=== PATIENT | female | born 1965 | race Caucasian/White ===

== ENCOUNTER 2021-11-24 18:42 | Inpatient (IN) | payer OTHER ==
[2021-11-24 20:02] VITALS: BMI 26.9
[2021-11-24] MEDS ORDERED: MAGNESIUM CITRATE 300 ML BOTTLE PO PRN (21:37)
[2021-11-24] MEDS ORDERED: MAGNESIUM HYDROX 2400MG/30ML ORAL SUSPENSION 30 ML CUP PO PRN (21:37)
[2021-11-24] MEDS ORDERED: LOPERAMIDE HCL 2 MG CAPSULE PO PRN (21:37)
[2021-11-24] MEDS ORDERED: NICOTINE POLACRILEX 2 MG GUM BC PRN (21:37)
[2021-11-24] MEDS ORDERED: MAG HYDROX/AL HYDROX/SIMETH 30 ML UNIT-DOSE CUP PO PRN (21:37)
[2021-11-25] MEDS: THIAMINE HCL 100 MG TABLET (FP) PO SCH ×2 (14:01→21:40)
[2021-11-25] MEDS: PRENATAL VITAMINS W/ FOLIC ACID TABLET (FP) PO SCH (14:01)
[2021-11-25 14:15] LABS: HEMOGLOBIN 11.8 GM/dL (10.7-15.3); MEAN CELL VOLUME 84.6 fl (80-96); MEAN PLT VOLUME 9.9 fl (7.5-11.1); PLATELET COUNT 203 10^3/uL (134-434); RBC 4.37 M/mm3 (3.60-5.2); RDW 15.4 % (11.6-15.6)
[2021-11-25 14:30] LABS: ALBUMIN 3.2 g/dl (3.4-5.0); BLOOD UREA NITROGEN 20.6 mg/dL (7-18)
[2021-11-25 14:33] LABS: CREATININE 0.6 mg/dL (0.55-1.3)
[2021-11-25 14:34] LABS: BILIRUBIN,TOTAL 0.2 mg/dL (0.2-1); TOT PROT 6.3 g/dl (6.4-8.2)
[2021-11-25 15:08] LABS: CALCIUM 9.4 mg/dL (8.5-10.1)
[2021-11-25] MEDS: MELATONIN 5 MG TABLETS PO PRN (21:40)
[2021-11-25] MEDS: hydrOXYzine PAMOATE 25 MG CAPSULE (FP) PO PRN (21:41)
[2021-11-25] MEDS: P-EPHED 60MG/TRIPROLIDI 2.5MG TABLET PO PRN (22:08)
[2021-11-26] MEDS: hydrOXYzine PAMOATE 25 MG CAPSULE (FP) PO PRN ×2 (04:01→22:00)
[2021-11-26] MEDS: P-EPHED 60MG/TRIPROLIDI 2.5MG TABLET PO PRN ×3 (04:01→18:06)
[2021-11-26] MEDS: ACETAMINOPHEN 325 MG TABLET (FP) PO PRN ×2 (10:48→21:53)
[2021-11-26] MEDS: PRENATAL VITAMINS W/ FOLIC ACID TABLET (FP) PO SCH (10:48)
[2021-11-26] MEDS: NICOTINE 10 MG CARTRIDGE (INHALER) IH SCH (13:40)
[2021-11-26] MEDS ORDERED: BENZOCAINE/MENTH/CETYLPYRD CL 1 EACH LOZENGE MM PRN (17:27)
[2021-11-26 17:46] LABS: PH,URINE 6.5 (5.0-8.0); URINE APPEARANCE CLEAR; URINE BILIRUBIN NEGATIVE (NEGATIVE); URINE COLOR YELLOW; URINE GLUCOSE (UA) NEGATIVE (NEGATIVE); URINE KETONE NEGATIVE (NEGATIVE); URINE LEUK ESTERASE NEGATIVE (NEGATIVE); URINE NITRITE NEGATIVE (NEGATIVE); URINE PROTEIN NEGATIVE (NEGATIVE); URINE UROBILINOGEN 0.2 mg/dL (0.2-1.0)
[2021-11-26] MEDS: THIAMINE HCL 100 MG TABLET (FP) PO SCH (21:53)
[2021-11-26] MEDS: QUEtiapine FUMARATE 200 MG TABLET PO SCH (21:53)
[2021-11-26] MEDS: guaiFENesin 200 MG/10 ML 10 ML UNIT-DOSE CUPS PO PRN (22:00)
[2021-11-27] MEDS: P-EPHED 60MG/TRIPROLIDI 2.5MG TABLET PO PRN ×3 (04:48→21:44)
[2021-11-27] MEDS: guaiFENesin 200 MG/10 ML 10 ML UNIT-DOSE CUPS PO PRN ×3 (04:48→18:52)
[2021-11-27] MEDS: PRENATAL VITAMINS W/ FOLIC ACID TABLET (FP) PO SCH (10:38)
[2021-11-27] MEDS: NICOTINE 10 MG CARTRIDGE (INHALER) IH SCH (10:39)
[2021-11-27] MEDS: ACETAMINOPHEN 325 MG TABLET (FP) PO PRN (14:29)
[2021-11-27] MEDS: IBUPROFEN 400 MG TABLET (FP) PO PRN (18:51)
[2021-11-27] MEDS: hydrOXYzine PAMOATE 25 MG CAPSULE (FP) PO PRN ×2 (18:51→21:40)
[2021-11-27] MEDS: THIAMINE HCL 100 MG TABLET (FP) PO SCH (21:40)
[2021-11-27] MEDS: QUEtiapine FUMARATE 200 MG TABLET PO SCH (21:40)
[2021-11-28] MEDS: IBUPROFEN 400 MG TABLET (FP) PO PRN (04:54)
[2021-11-28] MEDS: guaiFENesin 200 MG/10 ML 10 ML UNIT-DOSE CUPS PO PRN ×2 (04:54→17:35)
[2021-11-28] MEDS: hydrOXYzine PAMOATE 25 MG CAPSULE (FP) PO PRN ×3 (06:34→21:38)
[2021-11-28] MEDS: P-EPHED 60MG/TRIPROLIDI 2.5MG TABLET PO PRN (06:34)
[2021-11-28] MEDS: PRENATAL VITAMINS W/ FOLIC ACID TABLET (FP) PO SCH (10:09)
[2021-11-28] MEDS: NICOTINE 10 MG CARTRIDGE (INHALER) IH SCH (10:10)
[2021-11-28] MEDS: OSELTAMIVIR PHOSPHATE 75 MG CAPSULE PO SCH ×2 (11:35→21:37)
[2021-11-28] MEDS: ACETAMINOPHEN 325 MG TABLET (FP) PO PRN (17:35)
[2021-11-28] MEDS: THIAMINE HCL 100 MG TABLET (FP) PO SCH (21:37)
[2021-11-28] MEDS: QUEtiapine FUMARATE 200 MG TABLET PO SCH (21:37)
[2021-11-29] MEDS: hydrOXYzine PAMOATE 25 MG CAPSULE (FP) PO PRN ×3 (06:54→21:35)
[2021-11-29] MEDS: IBUPROFEN 400 MG TABLET (FP) PO PRN (06:54)
[2021-11-29] MEDS: NICOTINE 10 MG CARTRIDGE (INHALER) IH SCH (10:20)
[2021-11-29] MEDS: OSELTAMIVIR PHOSPHATE 75 MG CAPSULE PO SCH ×2 (10:21→21:35)
[2021-11-29] MEDS: ACETAMINOPHEN 325 MG TABLET (FP) PO PRN (10:21)
[2021-11-29] MEDS: PRENATAL VITAMINS W/ FOLIC ACID TABLET (FP) PO SCH (10:21)
[2021-11-29] MEDS: THIAMINE HCL 100 MG TABLET (FP) PO SCH (21:34)
[2021-11-29] MEDS: QUEtiapine FUMARATE 200 MG TABLET PO SCH (21:35)
[2021-11-30] MEDS: OSELTAMIVIR PHOSPHATE 75 MG CAPSULE PO SCH ×2 (10:08→22:37)
[2021-11-30] MEDS: PRENATAL VITAMINS W/ FOLIC ACID TABLET (FP) PO SCH (10:08)
[2021-11-30] MEDS: NICOTINE 10 MG CARTRIDGE (INHALER) IH SCH (10:08)
[2021-11-30] MEDS: hydrOXYzine PAMOATE 25 MG CAPSULE (FP) PO PRN ×2 (10:09→22:38)
[2021-11-30] MEDS: THIAMINE HCL 100 MG TABLET (FP) PO SCH (22:37)
[2021-11-30] MEDS: ACETAMINOPHEN 325 MG TABLET (FP) PO PRN (22:37)
[2021-11-30] MEDS: QUEtiapine FUMARATE 200 MG TABLET PO SCH (22:37)
[2021-12-01] MEDS: OSELTAMIVIR PHOSPHATE 75 MG CAPSULE PO SCH ×2 (09:34→21:34)
[2021-12-01] MEDS: PRENATAL VITAMINS W/ FOLIC ACID TABLET (FP) PO SCH (09:34)
[2021-12-01] MEDS: IBUPROFEN 400 MG TABLET (FP) PO PRN (09:35)
[2021-12-01] MEDS: NICOTINE 10 MG CARTRIDGE (INHALER) IH SCH (09:36)
[2021-12-01] MEDS: hydrOXYzine PAMOATE 25 MG CAPSULE (FP) PO PRN ×2 (16:45→21:35)
[2021-12-01] MEDS: THIAMINE HCL 100 MG TABLET (FP) PO SCH (21:33)
[2021-12-01] MEDS: QUEtiapine FUMARATE 200 MG TABLET PO SCH (21:33)
[2021-12-02] MEDS: NICOTINE 10 MG CARTRIDGE (INHALER) IH SCH (10:23)
[2021-12-02] MEDS: PRENATAL VITAMINS W/ FOLIC ACID TABLET (FP) PO SCH (10:23)
[2021-12-02] MEDS: OSELTAMIVIR PHOSPHATE 75 MG CAPSULE PO SCH ×2 (10:23→21:30)
[2021-12-02] MEDS: IBUPROFEN 400 MG TABLET (FP) PO PRN (14:03)
[2021-12-02] MEDS: hydrOXYzine PAMOATE 25 MG CAPSULE (FP) PO PRN (14:03)
[2021-12-02] MEDS: QUEtiapine FUMARATE 200 MG TABLET PO SCH (21:29)
[2021-12-02] MEDS: MELATONIN 5 MG TABLETS PO PRN (21:29)
[2021-12-02] MEDS: THIAMINE HCL 100 MG TABLET (FP) PO SCH (21:29)
[2021-12-03] MEDS: NICOTINE 10 MG CARTRIDGE (INHALER) IH SCH (10:23)
[2021-12-03] MEDS: PRENATAL VITAMINS W/ FOLIC ACID TABLET (FP) PO SCH (10:24)
[2021-12-03] MEDS: IBUPROFEN 400 MG TABLET (FP) PO PRN (10:25)
[2021-12-03] MEDS: hydrOXYzine PAMOATE 25 MG CAPSULE (FP) PO PRN ×2 (10:25→21:51)
[2021-12-03] MEDS: OSELTAMIVIR PHOSPHATE 75 MG CAPSULE PO SCH (13:48)
[2021-12-03] MEDS: THIAMINE HCL 100 MG TABLET (FP) PO SCH (21:51)
[2021-12-03] MEDS: QUEtiapine FUMARATE 200 MG TABLET PO SCH (21:51)
[2021-12-03] MEDS: MELATONIN 5 MG TABLETS PO PRN (21:52)
[2021-12-04] MEDS: PRENATAL VITAMINS W/ FOLIC ACID TABLET (FP) PO SCH (10:29)
[2021-12-04] MEDS: hydrOXYzine PAMOATE 25 MG CAPSULE (FP) PO PRN ×3 (10:29→21:40)
[2021-12-04] MEDS: NICOTINE 10 MG CARTRIDGE (INHALER) IH SCH (10:29)
[2021-12-04] MEDS: THIAMINE HCL 100 MG TABLET (FP) PO SCH (21:40)
[2021-12-04] MEDS: QUEtiapine FUMARATE 200 MG TABLET PO SCH (21:40)
[2021-12-04] MEDS: MELATONIN 5 MG TABLETS PO PRN (21:40)
[2021-12-05] MEDS: PRENATAL VITAMINS W/ FOLIC ACID TABLET (FP) PO SCH (10:35)
[2021-12-05] MEDS: NICOTINE 10 MG CARTRIDGE (INHALER) IH SCH (10:35)
[2021-12-05] MEDS: hydrOXYzine PAMOATE 25 MG CAPSULE (FP) PO PRN ×3 (10:35→21:59)
[2021-12-05] MEDS: MELATONIN 5 MG TABLETS PO PRN (21:59)
[2021-12-05] MEDS: THIAMINE HCL 100 MG TABLET (FP) PO SCH (21:59)
[2021-12-05] MEDS: QUEtiapine FUMARATE 200 MG TABLET PO SCH (21:59)
[2021-12-06] MEDS: PRENATAL VITAMINS W/ FOLIC ACID TABLET (FP) PO SCH (11:55)
[2021-12-06] MEDS: NICOTINE 10 MG CARTRIDGE (INHALER) IH SCH (11:55)
[2021-12-06] MEDS: MELATONIN 5 MG TABLETS PO PRN (21:54)
[2021-12-06] MEDS: QUEtiapine FUMARATE 200 MG TABLET PO SCH (21:55)
[2021-12-06] MEDS: hydrOXYzine PAMOATE 25 MG CAPSULE (FP) PO PRN (21:55)
[2021-12-06] MEDS: THIAMINE HCL 100 MG TABLET (FP) PO SCH (21:55)
[2021-12-07] MEDS: PRENATAL VITAMINS W/ FOLIC ACID TABLET (FP) PO SCH (11:32)
[2021-12-07] MEDS: NICOTINE 10 MG CARTRIDGE (INHALER) IH SCH (11:32)
[2021-12-07] MEDS: THIAMINE HCL 100 MG TABLET (FP) PO SCH (21:37)
[2021-12-07] MEDS: MELATONIN 5 MG TABLETS PO PRN (21:37)
[2021-12-07] MEDS: hydrOXYzine PAMOATE 25 MG CAPSULE (FP) PO PRN (21:37)
[2021-12-07] MEDS: QUEtiapine FUMARATE 200 MG TABLET PO SCH (21:37)
[2021-12-08] MEDS: PRENATAL VITAMINS W/ FOLIC ACID TABLET (FP) PO SCH (10:45)
[2021-12-08] MEDS: NICOTINE 10 MG CARTRIDGE (INHALER) IH SCH (10:45)
[2021-12-08] MEDS: QUEtiapine FUMARATE 200 MG TABLET PO SCH (21:42)
[2021-12-08] MEDS: THIAMINE HCL 100 MG TABLET (FP) PO SCH (21:42)
[2021-12-08] MEDS: hydrOXYzine PAMOATE 25 MG CAPSULE (FP) PO PRN (21:42)
[2021-12-08] MEDS: MELATONIN 5 MG TABLETS PO PRN (21:43)
[2021-12-09] MEDS: hydrOXYzine PAMOATE 25 MG CAPSULE (FP) PO PRN ×4 (10:35→21:51)
[2021-12-09] MEDS: PRENATAL VITAMINS W/ FOLIC ACID TABLET (FP) PO SCH (10:35)
[2021-12-09] MEDS: NICOTINE 10 MG CARTRIDGE (INHALER) IH SCH (10:35)
[2021-12-09] MEDS: THIAMINE HCL 100 MG TABLET (FP) PO SCH (21:51)
[2021-12-09] MEDS: QUEtiapine FUMARATE 200 MG TABLET PO SCH (21:51)
[2021-12-09] MEDS: MELATONIN 5 MG TABLETS PO PRN (21:51)
[2021-12-10] MEDS: PRENATAL VITAMINS W/ FOLIC ACID TABLET (FP) PO SCH (10:49)
[2021-12-10] MEDS: hydrOXYzine PAMOATE 25 MG CAPSULE (FP) PO PRN ×3 (10:49→21:45)
[2021-12-10] MEDS: NICOTINE 10 MG CARTRIDGE (INHALER) IH SCH ×3 (10:49→15:49)
[2021-12-10] MEDS: IBUPROFEN 400 MG TABLET (FP) PO PRN ×2 (10:50→15:47)
[2021-12-10] MEDS: QUEtiapine FUMARATE 200 MG TABLET PO SCH (21:45)
[2021-12-10] MEDS: THIAMINE HCL 100 MG TABLET (FP) PO SCH (21:45)
[2021-12-10] MEDS: MELATONIN 5 MG TABLETS PO PRN (21:45)
[2021-12-10] MEDS: NICOTINE 10 MG CARTRIDGE (INHALER) IH PRN (21:46)
[2021-12-11] MEDS: PRENATAL VITAMINS W/ FOLIC ACID TABLET (FP) PO SCH (10:45)
[2021-12-11] MEDS: hydrOXYzine PAMOATE 25 MG CAPSULE (FP) PO PRN ×2 (10:46→21:44)
[2021-12-11] MEDS: NICOTINE 10 MG CARTRIDGE (INHALER) IH PRN ×3 (10:46→21:45)
[2021-12-11] MEDS: MELATONIN 5 MG TABLETS PO PRN (21:44)
[2021-12-11] MEDS: THIAMINE HCL 100 MG TABLET (FP) PO SCH (21:44)
[2021-12-11] MEDS: QUEtiapine FUMARATE 200 MG TABLET PO SCH (21:44)
[2021-12-12] MEDS: PRENATAL VITAMINS W/ FOLIC ACID TABLET (FP) PO SCH (10:30)
[2021-12-12] MEDS: NICOTINE 10 MG CARTRIDGE (INHALER) IH PRN ×3 (11:05→21:44)
[2021-12-12] MEDS: MELATONIN 5 MG TABLETS PO PRN (21:43)
[2021-12-12] MEDS: QUEtiapine FUMARATE 200 MG TABLET PO SCH (21:43)
[2021-12-12] MEDS: THIAMINE HCL 100 MG TABLET (FP) PO SCH (21:43)
[2021-12-12] MEDS: hydrOXYzine PAMOATE 25 MG CAPSULE (FP) PO PRN (21:43)
[2021-12-13] MEDS: PRENATAL VITAMINS W/ FOLIC ACID TABLET (FP) PO SCH (11:26)
[2021-12-13] MEDS: NICOTINE 10 MG CARTRIDGE (INHALER) IH PRN ×2 (15:39→22:10)
[2021-12-13] MEDS: hydrOXYzine PAMOATE 25 MG CAPSULE (FP) PO PRN ×3 (16:03→22:02)
[2021-12-13] MEDS: THIAMINE HCL 100 MG TABLET (FP) PO SCH (22:02)
[2021-12-13] MEDS: QUEtiapine FUMARATE 200 MG TABLET PO SCH (22:02)
[2021-12-13] MEDS: MELATONIN 5 MG TABLETS PO PRN (22:02)
[2021-12-14] MEDS: NICOTINE 10 MG CARTRIDGE (INHALER) IH PRN ×2 (10:29→19:04)
[2021-12-14] MEDS: hydrOXYzine PAMOATE 25 MG CAPSULE (FP) PO PRN ×2 (10:30→22:01)
[2021-12-14] MEDS: PRENATAL VITAMINS W/ FOLIC ACID TABLET (FP) PO SCH (11:13)
[2021-12-14] MEDS: MELATONIN 5 MG TABLETS PO PRN (22:00)
[2021-12-14] MEDS: THIAMINE HCL 100 MG TABLET (FP) PO SCH (22:00)
[2021-12-14] MEDS: QUEtiapine FUMARATE 200 MG TABLET PO SCH (22:00)
[2021-12-15] MEDS: NICOTINE 14 MG/24 HOURS TOPICAL PATCH TD SCH (11:09)
[2021-12-15] MEDS: PRENATAL VITAMINS W/ FOLIC ACID TABLET (FP) PO SCH (11:10)
[2021-12-15] MEDS: NICOTINE 10 MG CARTRIDGE (INHALER) IH PRN ×3 (11:49→20:49)
[2021-12-15] MEDS: QUEtiapine FUMARATE 200 MG TABLET PO SCH (21:51)
[2021-12-15] MEDS: THIAMINE HCL 100 MG TABLET (FP) PO SCH (21:51)
[2021-12-16] MEDS: NICOTINE 10 MG CARTRIDGE (INHALER) IH PRN ×4 (06:59→21:29)
[2021-12-16] MEDS: PRENATAL VITAMINS W/ FOLIC ACID TABLET (FP) PO SCH (10:05)
[2021-12-16] MEDS: NICOTINE 14 MG/24 HOURS TOPICAL PATCH TD SCH (10:05)
[2021-12-16] MEDS: IBUPROFEN 400 MG TABLET (FP) PO PRN (12:25)
[2021-12-16] MEDS: THIAMINE HCL 100 MG TABLET (FP) PO SCH (21:28)
[2021-12-16] MEDS: QUEtiapine FUMARATE 200 MG TABLET PO SCH (21:28)
[2021-12-17] MEDS: NICOTINE 10 MG CARTRIDGE (INHALER) IH PRN ×3 (10:35→18:53)
[2021-12-17] MEDS: hydrOXYzine PAMOATE 25 MG CAPSULE (FP) PO PRN ×2 (10:35→21:50)
[2021-12-17] MEDS: PRENATAL VITAMINS W/ FOLIC ACID TABLET (FP) PO SCH (10:35)
[2021-12-17] MEDS: IBUPROFEN 400 MG TABLET (FP) PO PRN (10:36)
[2021-12-17] MEDS: METHOCARBAMOL 500 MG TABLET PO PRN (10:37)
[2021-12-17] MEDS: NICOTINE 14 MG/24 HOURS TOPICAL PATCH TD SCH (10:51)
[2021-12-17] MEDS: TOLNAFTATE 1% CREAM 15 GM TUBE TP SCH ×2 (12:09→23:18)
[2021-12-17] MEDS: P-EPHED 60MG/TRIPROLIDI 2.5MG TABLET PO PRN (19:51)
[2021-12-17] MEDS: QUEtiapine FUMARATE 200 MG TABLET PO SCH (21:49)
[2021-12-17] MEDS: MELATONIN 5 MG TABLETS PO PRN (21:49)
[2021-12-17] MEDS: THIAMINE HCL 100 MG TABLET (FP) PO SCH (21:49)
[2021-12-18 07:24] VITALS: TEMP 97.1
[2021-12-18] MEDS: hydrOXYzine PAMOATE 25 MG CAPSULE (FP) PO PRN (10:11)
[2021-12-18] MEDS: NICOTINE 14 MG/24 HOURS TOPICAL PATCH TD SCH (10:11)
[2021-12-18] MEDS: TOLNAFTATE 1% CREAM 15 GM TUBE TP SCH ×2 (10:11→21:58)
[2021-12-18] MEDS: PRENATAL VITAMINS W/ FOLIC ACID TABLET (FP) PO SCH (10:11)
[2021-12-18] MEDS: NICOTINE 10 MG CARTRIDGE (INHALER) IH PRN ×3 (10:12→19:42)
[2021-12-18] MEDS: METHOCARBAMOL 500 MG TABLET PO PRN (10:57)
[2021-12-18] MEDS: THIAMINE HCL 100 MG TABLET (FP) PO SCH (21:58)
[2021-12-18] MEDS: QUEtiapine FUMARATE 200 MG TABLET PO SCH (21:58)
[2021-12-19 07:31] VITALS: BP 101/61; PULSE 103
[2021-12-19] MEDS: NICOTINE 10 MG CARTRIDGE (INHALER) IH PRN (09:33)
[2021-12-19] MEDS: TOLNAFTATE 1% CREAM 15 GM TUBE TP SCH (09:33)
[2021-12-19] MEDS: PRENATAL VITAMINS W/ FOLIC ACID TABLET (FP) PO SCH (09:33)
[2021-12-19] MEDS: NICOTINE 14 MG/24 HOURS TOPICAL PATCH TD SCH (09:34)
== END 2021-12-19 09:35 | disposition home or self-care (01) | DRG 895 ==
LOC: YASAS 18:42 → Y5N 11-25 13:06
PROVIDERS: ADMIT Allergy & Immunology; ATTEND Psychiatry & Neurology Pain Medicine
PROC: HZ42ZZZ Group Counseling for Substance Abuse Treatment, Cognitive-Behavioral (ICD-10-PCS; principal; 2021-11-25)
DX: F10.20 Alcohol dependence, uncomplicated (principal); F14.20 Cocaine dependence, uncomplicated; F17.210 Nicotine dependence, cigarettes, uncomplicated; F31.9 Bipolar disorder, unspecified; F25.9 Schizoaffective disorder, unspecified; M17.12 Unilateral primary osteoarthritis, left knee; B35.3 Tinea pedis; J10.1 Influenza due to other identified influenza virus with other respiratory manifestations; M54.59 Other low back pain; G89.29 Other chronic pain; Z56.0 Unemployment, unspecified; Z59.01 Sheltered homelessness
CPT/HCPCS: 36415; 80053; 81003; 85027; 86780; 87811; C9803-CS; U0003; U0005